=== PATIENT | male | born 1955 | race Caucasian/White ===

== ENCOUNTER 2021-04-06 13:03 | Emergency (ER) | payer MEDICARE ==
[~2021-04-06] VITALS: Ht 188 cm; Wt 127.0 kg
[~2021-04-06 13:03] MED LIST: LISINOPRIL20 MG PO; WARFARIN SODIU7.5 MG PO; WARFARIN SODIUM10 MG PO
[2021-04-06] MEDS ORDERED: ELIQUIS5 M1 PO (14:08)
== END 2021-04-06 14:45 | disposition home or self-care (01) ==
LOC: ED 13:03
DX: I82.4Z2 Acute embolism and thrombosis of unspecified deep veins of left distal lower extremity (principal); I82.432 Acute embolism and thrombosis of left popliteal vein; I82.412 Acute embolism and thrombosis of left femoral vein; Z87.891 Personal history of nicotine dependence
CPT/HCPCS: 93971; 96372; 99283-25; J1650

== ENCOUNTER 2022-06-10 01:16 | Emergency (ER) | payer MEDICARE ==
[~2022-06-10] VITALS: Ht 188 cm; Wt 127.0 kg
[~2022-06-10 01:16] MED LIST changes: +AMOX TR-K CLV1 EAC1 PO; +ELIQUIS5 M1 PO; +ELIQUIS5 MG PO; +PREDNISONE20 MG PO; +WARFARIN SODIU2.5 MG PO; +WARFARIN SODIUM5 MG PO
[2022-06-10] MEDS ORDERED: ROSUVASTATIN CA10 MG PO (01:30)
[2022-06-10] MEDS ORDERED: LOSARTAN POTASS25 MG PO (01:30)
[2022-06-10] MEDS ORDERED: CIPRO500 MG PO (01:35)
== END 2022-06-10 01:53 | disposition home or self-care (01) ==
LOC: ED 01:16
DX: R33.9 Retention of urine, unspecified (principal); Z87.891 Personal history of nicotine dependence; Z88.1 Allergy status to other antibiotic agents; Z88.8 Allergy status to other drugs, medicaments and biological substances
CPT/HCPCS: 81001

== ENCOUNTER 2025-04-28 14:14 | Emergency (ER) | payer MEDICARE ==
[~2025-04-28] VITALS: Ht 185.4 cm; Wt 128.9 kg
[~2025-04-28 14:14] MED LIST changes: +CIPRO500 MG PO; +LOSARTAN POTASS25 MG PO; +ROSUVASTATIN CA10 MG PO
[2025-04-28 17:08] LABS: BASOPHILS 0.5 % (0.2-1.2); EOSINOPHILS 1.5 % (0.8-7.0); LYMPHOCYTES 11.2 % (21.8-53.1); MCH 30.5 PG (25.7-32.2); MCHC 33.3 g/dL (32.3-36.5); MCV 91.6 fL (79.0-92.2); MONOCYTES 11.9 % (5.3-12.2); NEUTROPHILS 74.4 % (34.0-67.9); RBC 4.06 M/uL (4.63-6.08)
[2025-04-28] MEDS ORDERED: LOSARTAN-HCTZ1 EACH PO (17:22)
[2025-04-28 17:23] LABS: INR 2.81 (0.80-1.30); PROTIME 28.7 Sec (11.2-14.2)
[2025-04-28 17:28] LABS: ALT (SGPT) 627.0 U/L (14-59); AST (SGOT) 470.0 U/L (15-37); GLOMERULAR FILTRATION RATE,EST 71.0 mL/min (>60); PROTEIN, TOTAL 6.7 g/dL (6.4-8.2); UREA NITROGEN 10.0 mg/dL (7-18)
[2025-04-28] MEDS ORDERED: FINASTERIDE5 MG PO (18:35)
[2025-04-28] MEDS ORDERED: FAMOTIDINE 20 MG/ 2 ML VIAL IV ONE (20:30)
[2025-04-28] MEDS ORDERED: MORPHINE SULFATE 4 MG/ML VIAL IV ONE (20:30)
[2025-04-28] MEDS ORDERED: CEFAZOLIN SODIUM 2 GM/20 ML SYR IV ONE (20:30)
[2025-04-28] MEDS ORDERED: MORPHINE SULFATE 4 MG/ML VIAL IV PRN (20:45)
[2025-04-28] MEDS ORDERED: LACTATED RINGER'S 1,000 ML IV SCH (20:45)
[2025-04-28] MEDS ORDERED: POTASSIUM CHLORIDE 10 MEQ TABCR PO ONE (23:30)
[2025-04-28 23:39] VITALS: BP 153/75
--- NOTE | 2025-04-29 13:22 | EKG ---
[facility] [address] [facility] [place] [address] Signed Accelerated Junctional rhythm Left axis deviation Minimal voltage criteria for LVH, may be normal variant ( R in aVL ) Abnormal ECG No previous ECGs available Confirmed by Kashif Oviedo DO ([id number]) on 04/29/2025 1:22:07 PM Electronically Signed By: KASHIF OVIEDO DO 04/29/25 1322 PATIENT NAME: LAURA GONZALEZ Electrocardiogram DATE OF : 55 PHYSICIAN: KASHIF OVIEDO DO REPORT #: [id number] REPORT IS CONFIDENTIAL AND NOT TO BE RELEASED WITHOUT AUTHORIZATION
== END 2025-04-28 23:43 | disposition short-term general hospital (02) ==
LOC: ED 14:14
PROVIDERS: Emergency Medicine
DX: R19.00 Intra-abdominal and pelvic swelling, mass and lump, unspecified site (principal); Z79.01 Long term (current) use of anticoagulants; Z79.899 Other long term (current) drug therapy; Z88.0 Allergy status to penicillin; Z88.1 Allergy status to other antibiotic agents; Z87.891 Personal history of nicotine dependence
CPT/HCPCS: 74174; 76705; 80053; 83690; 83735; 85025; 85610; 93005; 93010; 96374; 96375; 99285-25; A9270; J0690; J2270; J2405; J7121; Q9967

== ENCOUNTER 2025-08-22 10:13 | Emergency (ER) | payer MEDICARE ==
[~2025-08-22] VITALS: Ht 188 cm; Wt 125.3 kg
[~2025-08-22 10:13] MED LIST changes: +BENDAMUSTINE IV; +EMEND150 MG IV; +FINASTERIDE5 MG PO; +LOSARTAN-HCTZ1 EACH PO; +POTASSIUM CHLO10 ME1 PO; +TRUXIMA10 MG/1 ML IV
[2025-08-22 11:13] LABS: BASOPHILS 0.7 % (0.2-1.2); EOSINOPHILS 2.8 % (0.8-7.0); LYMPHOCYTES 5.3 % (21.8-53.1); MCH 33.2 PG (25.7-32.2); MCHC 34.4 g/dL (32.3-36.5); MCV 96.6 fL (79.0-92.2); MONOCYTES 17.7 % (5.3-12.2); NEUTROPHILS 72.2 % (34.0-67.9); RBC 3.28 M/uL (4.63-6.08)
[2025-08-22] MEDS ORDERED: SODIUM CHLORIDE 0.9% 2,500 ML IV PRN (11:15)
[2025-08-22] MEDS ORDERED: DAPTOmycin 500 MG/10 ML VIAL IV ONE (11:15)
[2025-08-22] MEDS ORDERED: PIPERACILLIN/TAZOBACTAM 4.5 GM in SODIUM CHLORIDE 0.9% 100 ML IV ONE (11:15)
[2025-08-22] MEDS ORDERED: CIPROFLOXACIN500 MG PO (11:24)
[2025-08-22] MEDS ORDERED: WARFARIN SODIU2.5 MG PO (11:24)
[2025-08-22 11:27] LABS: INR 1.07 (0.80-1.30); PROTIME 13.2 Sec (11.2-14.2)
[2025-08-22 11:31] LABS: ALT (SGPT) 23.0 U/L (14-59); AST (SGOT) 25.0 U/L (15-37); GLOMERULAR FILTRATION RATE,EST 59.0 mL/min (>60); PROTEIN, TOTAL 6.3 g/dL (6.4-8.2); UREA NITROGEN 19.0 mg/dL (7-18)
[2025-08-22 11:34] LABS: LACTIC ACID, BLOOD 1.3 mmol/L (0.4-2.0)
[2025-08-22 12:55] VITALS: BP 114/62
== END 2025-08-22 12:55 | disposition home or self-care (01) ==
LOC: ED 10:13
PROVIDERS: Emergency Medicine
DX: R78.81 Bacteremia (principal); Z79.01 Long term (current) use of anticoagulants; Z79.899 Other long term (current) drug therapy; Z88.0 Allergy status to penicillin; Z88.1 Allergy status to other antibiotic agents; Z87.891 Personal history of nicotine dependence
CPT/HCPCS: 36415; 80053; 83605; 85025; 85610; 85730; 96374; 96375; 99283-25; J0878; J2543